=== PATIENT | male | born 2000 | race Caucasian/White ===

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

== ENCOUNTER → 2022-02-11 | Outpatient (CLI) | payer OTHER | LOC: M PLALAB 14:19 | PROVIDERS: ATTEND Radiology Diagnostic Radiology | DX: R07.89 Other chest pain (principal) ==

== ENCOUNTER → 2022-08-11 | Outpatient (REF) | payer OTHER | LOC: M LAB REF 16:12 | PROVIDERS: ATTEND Internal Medicine | DX: Z13.89 Encounter for screening for other disorder (principal) ==